=== PATIENT | male | born 1970 ===

== ENCOUNTER 2021-11-22 13:06 | Emergency (ER) | payer OTHER ==
[~2021-11-22] VITALS: Ht 177.8 cm; Wt 88.5 kg
[2021-11-22] MEDS ORDERED: VISTARIL25 MG PO (16:15)
== END 2021-11-22 16:14 | disposition home or self-care (01) ==
LOC: ER 13:06
DX: R00.0 Tachycardia, unspecified (principal); Z88.0 Allergy status to penicillin